=== PATIENT | male | born 1955 | race Caucasian/White ===

== ENCOUNTER 2024-08-31 09:37 | Outpatient (RCR) | payer MEDICARE, MEDICAID, SELFPAY ==
[2024-08-31 10:07] VITALS: BP 143/81; PULSE 91; RESP 18; TEMP 36.1; BMI 36.9
== END 2024-08-31 14:03 | disposition home or self-care (01) ==
LOC: WC 09:37
PROVIDERS: PCP Family Medicine; Referring Provider Surgery Vascular Surgery; Visit Provider Nurse Practitioner Family
DX: E11.620 Type 2 diabetes mellitus with diabetic dermatitis (principal); R60.0 Localized edema; Z79.84 Long term (current) use of oral hypoglycemic drugs; Z79.85 Long-term (current) use of injectable non-insulin antidiabetic drugs; Z79.82 Long term (current) use of aspirin; I10 Essential (primary) hypertension; F17.200 Nicotine dependence, unspecified, uncomplicated; L85.3 Xerosis cutis
CPT/HCPCS: 99204; G0463